=== PATIENT | female | born 1970 | race Caucasian/White ===

== ENCOUNTER 2017-05-07 13:36 | Emergency (ER) | payer MEDICARE, OTHER ==
[~2017-05-07] VITALS: Ht 165.1 cm; Wt 115.0 kg
[2017-05-07 13:43] VITALS: Ht 165.1 cm; Wt 115.0 kg
--- NOTE | 2017-05-07 15:28 | ERD ---
ER Documentation Chief Complaint Date/Time DATE: 05/07/17 TIME: 15:26 Chief Complaint SENT BY PMD FOR ABDOMINAL PARACENTESIS,11/07 ABD PAIN HPI Patient is a 46-year-old female who presents with gradual onset, constant right- sided abdominal pain with mass for the last 6 months. She states that she is new to the [facility] and [facility], and had a an appointment with Dr. Braun yesterday. She had an ultrasound and CT that showed a fluid collection per her report. She denies fevers, vomiting, weight gain or weight loss. ROS All systems reviewed and are negative except as per history of present illness. Medications Home Meds No Active Prescriptions or Reported Meds Allergies Allergies: Coded Allergies: No Known Allergy (Unverified , 05/07/17) PMhx/Soc Past medical history: Hydrocephalus, hernia Past surgical history: 2 EXECUTIVE DIRECTOR shunts, hernia repair Last menstrual: Unknown Social history: Denies tobacco or alcohol Hx Neurological Disorder: Yes (HYDROCEPHALUS ) Hx Miscellaneous Medical Probl: Yes (HERNIA, DIVERTICULOSIS) Hx Alcohol Use: No Hx Substance Use: No Hx Tobacco Use: Yes Smoking Status: Never smoker FmHx Family History: No coronary disease, No diabetes Physical Exam Vitals Vital Signs Date Time Temp Pulse Resp B/P Pulse Ox O2 Delivery O2 Flow Rate FiO2 05/07/17 19:58 98.7 85 18 130/79 98 Room Air 05/07/17 13:43 98.5 78 18 120/70 98 Physical Exam Const: Alert, no acute distress Head: Atraumatic Eyes: Normal Conjunctiva, No pallor, no icterus ENT: Normal External Ears, Nose and Mouth.Mucous membranes moist Neck: Full range of motion..~ No meningismus. Resp: Clear to auscultation bilaterally, No wheezes, no rales Cardio: Regular rate and rhythm, no murmurs Abd: Soft, Nondistended, large, firm mobile mass in right upper and lower quadrants with mild tenderness. No guarding or rebound. Skin: No petechiae or rashes Back: No midline or flank tenderness Ext: No cyanosis, or edema Neur: Awake and alert, Moves and feels 4 extremities appropriately. Psych: Normal Mood and Affect Result Diagram: 05/07/17 1718 05/07/17 1718 Results 24 hrs Laboratory Tests Test 05/07/17 17:18 White Blood Count 8.410^3/ul Red Blood Count 4.7210^6/ul Hemoglobin 12.7g/dl Hematocrit 40.4% Mean Corpuscular Volume 85.6fl Mean Corpuscular Hemoglobin 26.9pg Mean Corpuscular Hemoglobin Concent 31.4g/dl Red Cell Distribution Width 16.2% Platelet Count 02496^3/UL Mean Platelet Volume 8.5fl Neutrophils % 67.1% Lymphocytes % 20.0% Monocytes % 9.3% Eosinophils % 2.9% Basophils % 0.5% Nucleated Red Blood Cells % 0.0/100WBC Neutrophils # (Manual) 5.610^3/ul Lymphocytes # 1.710^3/ul Monocytes # 0.810^3/ul Eosinophils # 0.210^3/ul Basophils # 0.010^3/ul Nucleated Red Blood Cells # 0.010^3/ul Urine Color YELLOW Urine Clarity CLOUDY Urine pH 5.0 Urine Specific [place] 1.033 Urine Ketones NEGATIVEmg/dL Urine Nitrite NEGATIVEmg/dL Urine Bilirubin NEGATIVEmg/dL Urine Urobilinogen NEGATIVEmg/dL Urine Leukocyte Esterase TRACELeu/ul Urine Microscopic RBC 2/HPF Urine Microscopic WBC 2/HPF Urine Squamous Epithelial Cells FEW/HPF Urine Bacteria FEW/HPF Urine Mucus FEW/HPF Urine Hemoglobin NEGATIVEmg/dL Urine Glucose NEGATIVEmg/dL Urine Total Protein NEGATIVEmg/dl Urine Test NEGATIVE Sodium Level 139mmol/L Potassium Level 4.3mmol/L Chloride Level 108mmol/L Carbon Dioxide Level 27mmol/L Anion Gap 8 Blood Urea Nitrogen 14mg/dl Creatinine 0.73mg/dl Glucose Level 89mg/dl Calcium Level 9.1mg/dl Total Bilirubin 0.5mg/dl Direct Bilirubin 0.00mg/dl Indirect Bilirubin 0.5mg/dl Aspartate Amino Transf (AST/SGOT) 24IU/L Alanine Aminotransferase (ALT/SGPT) 23IU/L Alkaline Phosphatase 99IU/L Total Protein 7.3g/dl Albumin 3.5g/dl Globulin 3.80g/dl Albumin/Globulin Ratio 0.92 Lipase 40U/L Current Medications Medications (Trade) Dose Ordered Sig/Juan Carlos Route PRN Reason Start Time Stop Time Status Last Admin Dose Admin IV Flush 10 ml 10 ml STK-MED ONCE .ROUTE 05/07/17 18:53 05/07/17 18:54 DC 05/07/17 20:05 Sodium Chloride (NS) 100 ml @ ud STK-MED ONCE .ROUTE 05/07/17 18:53 05/07/17 18:54 DC 05/07/17 20:11 Iohexol (Omnipaque 300mg/ ml) 150 ml STK-MED ONCE .ROUTE 05/07/17 18:53 05/07/17 18:54 DC Procedures/MDM I contacted the patient's primary care clinic and was advised that the patient had refused any workup due to co-pay. I called [facility], where the patient said that she had had imaging done, and was advised that they had no record of the patient. MDM: Patient is a 46-year-old female who presents with abdominal mass for 6 months. She initially stated that she had not had a diagnosis of this mass but had a CT and ultrasound yesterday. There is no evidence of her having have this done at the hospital she reported going to. On further history, the patient reported that she has had fluid drained from this mass 3 times over the last [address] of the abdomen showed a EXECUTIVE DIRECTOR shunt ending in the subcutaneous tissue with a large fluid collection. There is no evidence of overlying skin change, leakage, fever to suggest infection. The patient has no neurological symptoms or deficits and her mental status is at baseline. There is nothing to indicate shunt obstruction. I spoke with Dr. Ambrosio, neurosurgeon on-call, and he reviewed the CT scan and shunt series. He reports that the patient has complicated surgical anatomy, and that he will need to review the patient's prior medical records prior to intervening. He advises against draining the fluid collection due to risk of introducing infection to the shunt. He states that there is no indication for admission or emergent workup at this time if the patient has a stable mental status and neurologic exam, which she does. I will discharge the patient home and have advised her to contact Dr. Turcios to arrange for an outpatient appointment in the near future, and to obtain her medical records to bring to that appointment. I have advised her to return to the ER for any change in mental status, fever, or other concerns. Departure Diagnosis: Primary Impression: Hydrocephalus Additional Impressions: Seroma Complication of ventricular intracranial shunt Device complication type: mechanical Mechanical complication type: other Encounter type: initial encounter Qualified Code: T85.09XA - Other mechanical complication of ventricular intracranial shunt, initial encounter Condition: Stable HALINA CONLEY MD May 07, 2017 15:27
[2017-05-07 17:27] LABS: BASOPHILS % 0.5 % (0.0-2.0); EOSINOPHILS # 0.2 10^3/ul (0.0-0.5); EOSINOPHILS % 2.9 % (0.0-7.0); HEMATOCRIT 40.4 % (37.0-47.0); HEMOGLOBIN 12.7 g/dl (12.0-16.0); LYMPHOCYTES # 1.7 10^3/ul (0.8-2.9); MEAN CORPUSCULAR HEMOGLOBIN 26.9 pg (29.0-33.0); MEAN CORPUSCULAR HGB CONC 31.4 g/dl (32.0-37.0); MEAN CORPUSCULAR VOLUME 85.6 fl (82.0-101.0); MEAN PLATELET VOLUME 8.5 fl (7.4-10.4); MONOCYTE # 0.8 10^3/ul (0.3-0.9); MONOCYTES % 9.3 % (0.0-11.0); NEUTROPHILS % 67.1 % (39.0-77.0); PLATELET COUNT 266 10^3/UL (140-415); RED BLOOD COUNT 4.72 10^6/ul (4.20-5.40); RED CELL DISTRIBUTION WIDTH 16.2 % (11.5-14.5); WHITE BLOOD COUNT 8.4 10^3/ul (4.8-10.8)
[2017-05-07 17:52] LABS: ALBUMIN 3.5 g/dl (3.3-4.9); ALBUMIN/GLOBULIN RATIO 0.92; BILIRUBIN,INDIRECT 0.5 mg/dl (0-1.1); BILIRUBIN,TOTAL 0.5 mg/dl (0.2-1.3); CALCIUM 9.1 mg/dl (8.4-10.2); CREATININE 0.73 mg/dl (0.44-1.00); POTASSIUM 4.3 mmol/L (3.5-5.1); TOTAL PROTEIN 7.3 g/dl (6.1-8.1)
[2017-05-07 18:00] LABS: ADD UMIC YES; UR ASCORBIC ACID NEGATIVE (NEGATIVE); UR BACTERIA FEW /HPF (NONE SEEN); UR BILIRUBIN (Dip) NEGATIVE (NEGATIVE); UR BLOOD (Dip) NEGATIVE (NEGATIVE); UR CLARITY CLOUDY (CLEAR); UR COLOR YELLOW (YELLOW); UR GLUCOSE (Dip) NEGATIVE (NEGATIVE); UR KETONES (Dip) NEGATIVE (NEGATIVE); UR LEUKOCYTE ESTERASE (Dip) TRACE Leu/ul (NEGATIVE); UR MUCUS FEW /HPF (NONE SEEN); UR NITRITE (Dip) NEGATIVE (NEGATIVE); UR RBC 2 /HPF (0-5); UR SPECIFIC GRAVITY (Dip) 1.033 (1.003-1.030); UR SQUAMOUS EPITHELIAL CELL FEW /HPF (FEW); UR TOTAL PROTEIN (Dip) NEGATIVE (NEGATIVE); UR UROBILINOGEN (Dip) NEGATIVE (NEGATIVE)
[2017-05-07] MEDS ORDERED: SOD CHLORIDE 0.9% 100 ML ONE (18:53)
[2017-05-07] MEDS ORDERED: IOHEXOL 300MG/ML 150 ML BTL ONE (18:53)
--- NOTE | 2017-05-07 20:53 | RADRPT ---
PROCEDURE: CT ABDOMEN AND PELVIS WITH CONTRAST: CLINICAL INDICATION: 46 years of age, female, right-sided abdominal pain and mass. COMPARISON: None available. TECHNIQUE: CT of the abdomen and pelvis was performed following administration of 100 mL IV Omnipaq ue-300. Oral contrast was not administered prior to the examination. Coronal and sagittal reformatted images were obtained from the axial source images. Images were revi ewed on a high-resolution PACS workstation. Dose information: Based on a 32 cm phantom, the estimated radiation dose (CTDIvol mGy for each serie s in this exam is 28.8. The estimated cumulative dose (DLP mGy-cm) is 1749. One or more of the following dose reduction techniques were used: - Automated exposure control. - Adjustment of the mA and/or kV according to patient size. - Use of iterative reconstruction technique. FINDINGS: LUNG BASES: Indeterminate metallic density projects over the right atrium and may represent artifact . There is a 0.6 cm right middle lobe pulmonary nodule (3/9). ABDOMEN/PELVIS: Liver: Mild hepatomegaly measuring 19 cm in length. Otherwise normal. No focal lesions. Portal veins , splenic vein and SMV are patent. Hepatic veins are patent. Gallbladder: Status post cholecystectomy. Bile ducts: No intrahepatic or extrahepatic biliary duct dilatation. Spleen: Normal. Pancreas: Normal. Adrenal glands: 1.5 cm right adrenal nodule. Left adrenal gland is normal. Kidneys and ureters: Normal. Aorta and IVC: Patent. Lymph nodes: Prominent bilateral inguinal lymph nodes are likely reactive. Gastrointestinal tract: Mild sigmoid colon diverticulosis without diverticulitis. Bowel loops are de compressed. Appendix: Normal Bladder: Normal. Pelvic Organs: The uterus and adnexa are unremarkable. Peritoneal cavity: No free fluid or free intraperitoneal air. Abdominal wall: There is a 15 x 19 cm fluid collection in the right mid abdominal wall that is incom pletely evaluated due to the patient's large size. It is in the subcutaneous fat and extends to the underlying abdominal wall musculature. There is a shunt catheter in the abdominal wall that courses around this collection. It is visualized superior and inferior to the collection where the blind end does not extend into the abdominal wall. The catheter cannot be followed laterally and superficiall y. There are 2 other shunt catheters in the abdominal wall. One of these enters the abdominal cavity in the left upper quadrant and terminates in the left lower quadrant of the abdomen. No fluid collecti ons are identified along the course of this catheter or in the abdominal cavity. The other catheter courses in the left abdominal wall and ends blindly in the left lower quadrant without entering the peritoneal cavity. Soft tissue edema in the subcutaneous fat of the lower back. BONES: Musculoskeletal: Degenerative changes lower lumbar spine with curvature convex right. No suspicious bone lesions. IMPRESSION: 19 cm fluid collection in the subcutaneous fat of the right abdominal wall likely represents a CSF-o ma related to a shunt catheter that ends blindly in the right abdominal wall. The fluid collection i s incompletely evaluated because of the patient's large size. The shunt catheter is also incompletel y evaluated because of the patient's large size but appears to end blindly in the abdominal wall and not in the peritoneal cavity. Recommend further evaluation with x-ray to better evaluate for discon tinuity of the catheter. Recommend neurosurgery consultation as well. There are two other shunt catheters. One of these enters the abdomen in the left upper quadrant and is in the peritoneal cavity with the tip in the pelvis. There is a notable absence of fluid or CSF i n the abdominal cavity and this catheter may not be functioning. The other shunt catheter ends blind ly in the left lower quadrant abdominal wall. An indeterminate metallic density projects over the right atrium and may represent artifact. This ca n be evaluated when the patient has a chest x-ray to evaluate the shunt catheters. 0.6 cm right middle lobe pulmonary nodule. Recommend correlation with previous imaging if available. If not available, recommend follow-up low-dose chest CT in 6-12 months per 2017 Fleischner society guidelines. 1.5 cm right adrenal nodule. In the absence of a known primary neoplasm, this is statistically ila gn. Recommend correlation with endocrine studies to evaluate for a functioning adenoma or pheochrom ocytoma. Follow up imaging may be performed when the patient has follow-up low-dose chest CT to eval uate the pulmonary nodule. Alternatively, correlation with previous imaging is recommended. Critical results regarding shunt catheters and abdominal wall fluid collection were discussed with Eriberto Hyde by Dr. Maisha Hansen on May 07, 2017 at 08:30 p.m.. RPTAT: HCTS Samanta Hansen, Physician Date Time Electronically viewed and signed by Samanta Hansen, Physician on 05/07/2017 20:52 CS/
--- NOTE | 2017-05-07 22:50 | RADRPT ---
PROCEDURE: XR Chest PA and Lateral CLINICAL INDICATION: Shunt evaluation TECHNIQUE: PA and Lateral views of the chest were obtained. COMPARISON: None. FINDINGS: 3 shunt catheters project through the inferior neck and superior chest. On the right, there are 2 ca theters with 1 that extends through the chest and into the superior abdomen discontinuous at the rig ht base of the neck and with the second which extends superiorly beyond the limits of the image poor ly seen distal to the right mainstem bronchus. The V-P shunt on the left becomes obscured at the lev el of the left mainstem bronchus. Visualization is suboptimal related to the patient's large body reyes bitus which degrades the image. Cardiovascular: The cardiovascular silhouette appears unremarkable. Lung Ramirez: The lung ramirez appear clear with no nodule, alveolar infiltrate, or interstitial promi nence evident. Pleural Spaces: No pneumothorax is identified and no effusion is evident. Osseous Structures: The osseous structures appear intact. Soft Tissues: The soft tissues appear generous. IMPRESSION: 1. To a right-sided shunt catheters are evident with the catheter that appears to extend through th e chest into the abdomen discontinuous at the right base of the neck and with the second catheter wh ich extend superiorly beyond the limits of the study pleural poorly visualized distal to the level o f the right mainstem bronchus. The left-sided catheter becomes obscured within the adenosine the med iastinum at approximately the level of the left mainstem bronchus. Visualization is suboptimal relat ed to the patient's large body habitus. 2. Otherwise, unremarkable chest. Physician Giorgio Date Time Electronically viewed and signed by Physician Giorgio on 05/07/2017 22:49 /
--- NOTE | 2017-05-07 22:53 | PN ---
Date/Time of Note Date/Time of Note DATE: 05/07/17 TIME: 22:30 Subjective 24 Hr Interval Summary Free Text/Dictation Date of note: May 07, 2017 I was contacted initially by the emergency room physician, Dr. Hyde about an hour and half ago regarding a patient with "congenital hydrocephalus" who had a shunt put in in childhood and has had her management done in other states. Apparently the patient just moved to [place] and has not had any further follow-up by the neurosurgeons. The patient says that she has had multiple drainage of fluid in an abdominal pocket where the shunt is but she is unable to provide further details. There is no shunt tubing exposed according to the emergency room doctor. According to the emergency room doctor, the patient says that she has presented to multiple emergency rooms recently in [facility] however when the emergency room staff has contacted these facilities there is no record of the patient having presented to the's emergency room. The patient is believed to be a poor historian. The patient denies any headaches, weakness and numbness, lethargy or insomnia, nausea or vomiting or loss of consciousness or seizures. The patient has not had any fevers. I have reviewed the CT of the abdomen and the patient appears to have multiple distal shunt catheters present on both sides of the abdomen with at least one or 2 of the catheters being placed in the intraperitoneal space and a catheter on the right side with the distal tubing being outside of the peritoneum and in the subcutaneous space associated with a right-sided subcutaneous fluid collection. The skull and the chest x-ray are of suboptimal quality but it is apparent that the patient has at least 2 shunt tubings in her skull that appeared to be programmable shunt valves. It is not clear whether one of the distal shunt tubings is in the right atrium or is continuing down to the peritoneum. As of explained to the emergency room physician, based on the description that I been given the patient does not appear to have any signs and symptoms of acute hydrocephalus, and she does not have evidence of fevers leukocytosis that could point to a potential shunt infection. There is no acute neurosurgical intervention indicated at this point. However the patient can follow up with my clinic or another neurosurgeon in the next week for further evaluation. However, it is essential that the patient obtain all the prior medical records from the previous facilities where she has had the COMMERCIAL SALES DIRECTOR shunt placement or revisions and the type of shunts in the type of shunt valves that are in place with appropriate program settings. It is completely unclear why the patient has multiple shunts in place and why she has multiple distal shunt tubings in place with one distal shunt tubing outside of the peritoneum. It is also completely unclear why the prior surgeons elected to drain the abdominal fluid pocket rather than revising the patient's shunt. It is very possible, that there is a very good reason why the shunt has not been revised till now. Therefore again it is essential that the outside medical record be obtained by the patient prior to coming for follow-up visit next week. She will also need a CT of the head without contrast as well as a CT of chest without contrast prior to his clinic visit and needs to bring the CD with the actual images on it to clinic. The patient will also need to be evaluated by general surgeon or a vascular surgeon as this may also be required if any possibility for a shunt revision is planned. LETTY BOB MD May 07, 2017 22:53
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
--- NOTE | 2017-05-07 23:00 | RADRPT ---
PROCEDURE: XR Abdomen. CLINICAL INDICATION: Ventriculoperitoneal shunt catheter evaluation. TECHNIQUE: Supine AP views of the abdomen. COMPARISON: None. FINDINGS: The examination is limited by patient body habitus. There are no dilated loops of small bowel to sug gest a bowel obstruction. Gas and stool are seen within nondilated large bowel. No abnormal calcif ications are identified. Tubing projects over the abdomen and pelvis, incompletely imaged. No kinkin g or discontinuity of the tubing is visualized. IMPRESSION: 1. Incompletely imaged tubing projecting over the abdomen and pelvis. No kinking or discontinuity of the tubing is visualized. RPTAT: HTAR .Kevin Houser MD, MD Date Time Electronically viewed and signed by .Kevin Houser MD, on 05/07/2017 22:59 .R/
[2017-05-07 23:12] VITALS: BP 123/82; PULSE 85; RESP 16; TEMP 98.7
== END 2017-05-07 23:15 | disposition home or self-care (01) ==
LOC: E/R 13:36
DX: G91.9 Hydrocephalus, unspecified (principal); T85.09XA Other mechanical complication of ventricular intracranial (communicating) shunt, initial encounter; Y75.8 Miscellaneous neurological devices associated with adverse incidents, not elsewhere classified; Z87.891 Personal history of nicotine dependence
CPT/HCPCS: 36415; 70250; 71020; 74000; 74177; 80053; 81001; 83690; 84703; 85025; 99285; Q9967